=== PATIENT | female | born 1995 | race Caucasian/White ===

== ENCOUNTER 2018-07-05 21:57 | Emergency (ER) | payer SELFPAY ==
[~2018-07-05] VITALS: Ht 175.3 cm; Wt 63.0 kg
[2018-07-05 22:01] VITALS: BP 117/64
--- NOTE | 2018-07-05 22:01 | NUR ---
TO BED # 11 AMBULATORY, REPORT GIVEN TO ESTHER BINGHAM
--- NOTE | 2018-07-05 22:10 | NUR ---
BIB SELF. COUGH, RUNNY NOSE, HEADACHE FOR 9 DAYS, VOMITING. STATES LOTS OF PRESSURE BEHIND EYES AND EARS. DENIES SOB, NO LABORED BREATHING OR FEVER.
--- NOTE | 2018-07-05 22:14 | NUR ---
RAD AT BEDSIDE
--- NOTE | 2018-07-05 22:21 | NUR ---
DR BRITTON AT BEDSIDE.
[2018-07-05] MEDS ORDERED: KETOROLAC 30 MG/ML VIAL IM ONE (22:30)
[2018-07-05] MEDS ORDERED: PHENYLEPHRINE 0.5% 15 ML BTL NS ONE (22:30)
[2018-07-05 23:26] VITALS: BP 117/64
--- NOTE | 2018-07-05 23:27 | NUR ---
Patient discharged with v/s stable. Written and verbal after care instructions given and explained. Patient alert, oriented and verbalized understanding of instructions. Ambulatory with steady gait. All questions addressed prior to discharge. ID band removed. Patient advised to follow up with PMD. Rx of AUGMENTIN, SUDAFED, NAPROSYN given. Patient educated on indication of medication including possible reaction and side effects. Opportunity to ask questions provided and answered.
== END 2018-07-05 23:27 | disposition home or self-care (01) ==
LOC: MED 21:57
DX: J32.9 Chronic sinusitis, unspecified (principal); H92.03 Otalgia, bilateral
CPT/HCPCS: 71045; 87804; 96372; 99284; J1885

== ENCOUNTER 2018-11-05 04:10 | Emergency (ER) | payer MEDICAID ==
[~2018-11-05] VITALS: Ht 175.3 cm; Wt 60.8 kg
[2018-11-05 04:15] VITALS: BP 112/65
--- NOTE | 2018-11-05 04:22 | NUR ---
PT CAME TO ER C/O OF EPIGASTRIC PAIN X 4 DAYS. PT WENT TO [facility] ON 11/01/18 AND THEY GAVE HER A SHOT FOR PAIN. CURRENT PAIN LEVEL 9/10, SHARP, CONSTANT PAIN THAT RADIATES TO THE BACK. BOWEL SOUNDS ACTIVE X 4 QUADRANTS. ABDOMEN SOFT, TENDER TO TOUCH IN EPIGASTRIC REGION. PT HAS NAUSEA. DENIES V/D. PT LAST BM 11/01/18. PT DENIES BURNING UPON URINATION. NO MED HX. SAFETY MEASURES IN PLACE. ERMD NOTIFIED OF PT STATUS.
[2018-11-05] MEDS ORDERED: NACL 0.9% 500 ML IV ONE (04:32)
[2018-11-05] MEDS ORDERED: KETOROLAC 30 MG/ML VIAL IVP ONE (04:35)
[2018-11-05] MEDS ORDERED: PANTOPRAZOLE 40 MG INJ VIAL IVP ONE (04:40)
[2018-11-05 05:02] LABS: BASOPHILS % (AUTO) 0.4 % (0.0-2.0); EOSINOPHILS % (AUTO) 0.2 % (0.0-4.0); HEMATOCRIT 36.9 % (36-48); HEMOGLOBIN 12.4 g/dL (12.0-16.0); LYMPHOCYTES # (AUTO) 2.2 K/uL (2.5-16.5); LYMPHOCYTES % (AUTO) 22.2 % (20.5-51.1); MEAN CORPUSCULAR HEMOGLOBIN 31 pg (27-31); MEAN CORPUSCULAR HGB CONC 34 g/dL (33-37); MEAN CORPUSCULAR VOLUME 92.8 fL (80-94); MONOCYTES # (AUTO) 0.9 K/uL (0.8-1.0); MONOCYTES % (AUTO) 9.7 % (1.7-9.3); NEUTROPHILS # (AUTO) 6.6 K/uL (1.8-7.7); NEUTROPHILS % (AUTO) 67.5 % (42.2-75.2); PLATELET COUNT (AUTO) 229 K/uL (140-450); RED BLOOD CELL COUNT(AUTO) 3.98 MIL/uL (4.20-5.40); RED CELL DISTRIBUTION WIDTH 12.4 % (11.6-13.7); WHITE BLOOD COUNT (AUTO) 9.7 K/uL (4.8-10.8)
[2018-11-05 05:13] LABS: ANION GAP 11.5 (8-16); CARBON DIOXIDE 26.6 mmol/L (21-32); CREATININE 0.9 mg/dL (0.6-1.3); POTASSIUM 3.1 mmol/L (3.5-5.1)
[2018-11-05] MEDS ORDERED: POTASSIUM CHLORIDE 10 MEQ TABER PO ONE (05:15)
[2018-11-05 05:19] LABS: ALBUMIN 3.7 g/dL (3.4-5.0); TOTAL BILIRUBIN 0.7 mg/dL (0.0-1.0)
--- NOTE | 2018-11-05 05:30 | NUR ---
PER PT SHE FEELS MUCH BETTER. PAIN LEVEL 0/10. ERMD MADE AWARE.
--- NOTE | 2018-11-05 05:53 | NUR ---
Patient discharged with v/s stable. Written and verbal after care instructions given and explained. Patient alert, oriented and verbalized understanding of instructions. Ambulatory with steady gait. All questions addressed prior to discharge. ID band removed. Patient advised to follow up with PMD. Rx of MINERAL OIL AND PROTONIX WAS given. Patient educated on indication of medication including possible reaction and side effects. Opportunity to ask questions provided and answered.
[2018-11-05 05:54] VITALS: BP 124/72
== END 2018-11-05 05:50 | disposition home or self-care (01) ==
LOC: MED 04:10
DX: R10.13 Epigastric pain (principal); M54.9 Dorsalgia, unspecified
CPT/HCPCS: 36415; 74018; 80053; 81025; 83690; 85025; 96374; 96375; 99283; C9113; J1885; J7030; Q0092

== ENCOUNTER 2020-01-21 22:53 | Emergency (ER) | payer MEDICAID ==
[~2020-01-21] VITALS: Ht 175.3 cm; Wt 79.4 kg
[2020-01-21 23:02] VITALS: BP 127/66
--- NOTE | 2020-01-21 23:06 | NUR ---
PT TAKEN TO ER BED 6 VIA W/C
--- NOTE | 2020-01-21 23:07 | NUR ---
25 Y/O FEMALE PRESENTED TO ED C/O LT KNEE PAIN S/P FALL ON TUESDAY. PT DENIES HITTING HEAD , -LOC. PT STATES SHE FELL DIRECTLY ON THE LT KNEE. OBSERVED LIMPING WHILE PT AMUBULATED TO BED. OBSERVED SWELLING IN LT KNEE.+CMS, BL STRONG PEDAL PULSES. PT RATES KNEE PAIN 9/10 , RADIATE TINGLING TO TOES. PT DENIES TAKING ANY MEDICATION FOR PAIN AT THIS TIME. PT RESTING IN BED, LOCKED AND IN LOWEST POSITION, HOB ELEVATED, SIDE RAIL X1. NO ACUTE DISTRESS NOTED AT THIS TIME. PMH: DENIES NKA
--- NOTE | 2020-01-21 23:15 | NUR ---
Female Barrelhead Inspector accompanied female patient for knee exam administered by Dr. Kapadia.
--- NOTE | 2020-01-21 23:15 | NUR ---
JOVANY CARRANZA AT BEDSIDE
[2020-01-21] MEDS ORDERED: ACETAMINOPHEN EXTRA STRENGTH 500 MG TAB PO ONE (23:20)
--- NOTE | 2020-01-21 23:25 | NUR ---
XRAY AT BEDSIDE.
--- NOTE | 2020-01-21 23:55 | NUR ---
JOVANY CARRANZA AT BEDSIDE
--- NOTE | 2020-01-22 00:04 | NUR ---
KNEE IMMOBILIZER PLACED ON PT L KNEE, FASTENED TO SIZE. +CSM
--- NOTE | 2020-01-22 00:04 | NUR ---
EMT AT BEDSIDE FOR KNEE STABLIZER AND CRUTCHES .
--- NOTE | 2020-01-22 00:05 | NUR ---
PT GIVEN INSTRUCTION ON PROPER USE OF CRUTCHES. FITTED TO PT HEIGHT AND ARM LENGTH. PT DEMONSTRATED SAFE USE FOR APPROXIMATELY 40 FEET, STATED SHE FELT COMFORTABLE WITH USE.
[2020-01-22 00:30] VITALS: BP 127/66
--- NOTE | 2020-01-22 00:30 | NUR ---
Patient discharged with v/s stable. Written and verbal after care instructions given and explained. Patient verbalized understanding. Ambulatory with steady gait while using crutches. All questions addressed prior to discharge. Advised to follow up with PMD.
== END 2020-01-22 00:30 | disposition home or self-care (01) ==
LOC: MED 22:53
DX: M25.562 Pain in left knee (principal)
CPT/HCPCS: 29505; 73562; 99283

== ENCOUNTER 2020-06-06 10:46 | Emergency (ER) | payer MEDICAID ==
[~2020-06-06] VITALS: Ht 172.7 cm; Wt 68.0 kg
[2020-06-06 10:50] VITALS: BP 138/86
--- NOTE | 2020-06-06 10:55 | NUR ---
PATIENT AMBULATED TO BED 06 WITH STEADY GAIT.
--- NOTE | 2020-06-06 10:58 | NUR ---
25 y/o F coming in from home with c/c anxiety symptoms x 2 weeks. Patient states two weeks ago, she was showering when the anxiety occured. Pt reports her throat closing; chest pressure; dizziness/nausea. Pt states since two weeks ago, the anxiety has progressively worsen. She reports having nightmares and awkening with panic attacks. Patient states she was diagnosed with anxiety in 2016, however, refused to take prescribed medications at the time. Pt also states she has been feeling "sad" since 2016 as well. Pt states associated SOB, fatigue, headache, vision changes, and chest pressure which she rates 8/10, pressure/constant, non-radiating. Pt denies dizziness, vomiting, abdominal pain, recent life stressors or lifestyle changes. Pt denies taking any medications prior to arrival. Pt placed onto cardiac montior. Bed locked in lowest position, side rails x 1, call light in reach. PMH: Anxiety (2016) Meds: "Refused prescribed meds in 2016" NKA Sx: Denies
--- NOTE | 2020-06-06 11:14 | NUR ---
DR CRAFT AT BEDSIDE EXAMINING PATIENT
[2020-06-06] MEDS ORDERED: clonazePAM 0.5 MG TAB PO ONE ×2 (11:20→12:30)
--- NOTE | 2020-06-06 11:20 | NUR ---
EMT at bedside for EKG
[2020-06-06] MEDS ORDERED: CRUSHER, PILL MC ONE (11:28)
--- NOTE | 2020-06-06 11:57 | NUR ---
Patient states positive relief after 0.25 mg Klonopin. Pt resting in semi-fowlers position. actuarial mathematician remains in place. All pt needs met at this time. Bed locked in lowest position, side rails x 1, call light in reach.
[2020-06-06] MEDS ORDERED: CLON0.5T PO (12:30)
[2020-06-06 12:35] VITALS: BP 107/65
--- NOTE | 2020-06-06 12:35 | NUR ---
Patient discharged with v/s stable. Written and verbal after care instructions given and explained. Patient alert, oriented and verbalized understanding of instructions. Ambulatory with steady gait. All questions addressed prior to discharge. ID band removed. Patient advised to follow up with PMD. Rx of Clonazepam given. Patient educated on indication of medication including possible reaction and side effects. Opportunity to ask questions provided and answered.
== END 2020-06-06 11:10 | disposition home or self-care (01) ==
LOC: MED 10:46
DX: F41.9 Anxiety disorder, unspecified (principal); Z79.899 Other long term (current) drug therapy
CPT/HCPCS: 93005; 99283

== ENCOUNTER 2020-10-21 07:44 | Emergency (ER) | payer SELFPAY ==
[~2020-10-21] VITALS: Ht 170.2 cm; Wt 72.6 kg
[~2020-10-21 07:44] MED LIST: CLON0.5T PO
[2020-10-21 07:46] VITALS: BP 123/70
--- NOTE | 2020-10-21 07:54 | NUR ---
WAIT AT LOBBY. HANDED ON URINE CUP.
--- NOTE | 2020-10-21 08:45 | NUR ---
PT AMBULATED TO BED 9
--- NOTE | 2020-10-21 09:10 | NUR ---
25 YO FEMALE BIB SELF C/O DIZZINESS, HEADACHE, DIARRHEA, VOMITING X2DAYS. HEADACHE 10/10 PAIN, ACHING, NON RADIATING. DENIES BLOOD IN D/V. DENIES SYNCOPAL EPISODES. DENIES FEVER, CHILLS. BS ACTIVE X4, TENDERNESS TO LEFT SIDE DURING PALPATION. PT PLACED ON CYBER OPS PLANNER, AND O2 SAT CONT READING AT THIS TIME. BED IN LOWEST POSITON, SIDE RAILS UP FOR SAFETY. PMH: NONE ALLERGIES: NONE
--- NOTE | 2020-10-21 09:11 | NUR ---
MD FERRIS AT BEDSIDE.
--- NOTE | 2020-10-21 09:13 | NUR ---
PATIENT AMBULATED TO THE BATHROOM, STEADY GAIT.
[2020-10-21] MEDS ORDERED: NACL 0.9% 1,000 ML IV ONE (09:15)
[2020-10-21] MEDS ORDERED: ONDANSETRON 4 MG/2 ML VIAL IVP ONE (09:15)
--- NOTE | 2020-10-21 10:37 | NUR ---
PT AMBULATED TO BATHROOM, STEADY GAIT.
--- NOTE | 2020-10-21 11:11 | NUR ---
PT IN BED RESTING, RR EVEN AND UNLABORED. WARM BLANKET PROVIDED.
--- NOTE | 2020-10-21 11:25 | NUR ---
COLLECTED BLOOD AND WALKED TO LAB, HANDED TO STAFF.
[2020-10-21 11:38] LABS: BASOPHILS # (AUTO) 0.1 K/uL (0.00-0.22); BASOPHILS % (AUTO) 0.7 % (0.0-2.0); EOSINOPHILS % (AUTO) 0.2 % (0.0-4.0); HEMATOCRIT 37.6 % (36-48); HEMOGLOBIN 12.8 g/dL (12.0-16.0); LYMPHOCYTES # (AUTO) 2.1 K/uL (2.5-16.5); MEAN CORPUSCULAR HEMOGLOBIN 32 pg (27-31); MEAN CORPUSCULAR HGB CONC 34 g/dL (33-37); MEAN CORPUSCULAR VOLUME 92.9 fL (80-94); MONOCYTES # (AUTO) 0.8 K/uL (0.8-1.0); MONOCYTES % (AUTO) 8.2 % (1.7-9.3); NEUTROPHILS # (AUTO) 6.6 K/uL (1.8-7.7); NEUTROPHILS % (AUTO) 68.9 % (42.2-75.2); PLATELET COUNT (AUTO) 290 K/uL (140-450); RED BLOOD CELL COUNT(AUTO) 4.05 MIL/uL (4.20-5.40); RED CELL DISTRIBUTION WIDTH 12.8 % (11.6-13.7); WHITE BLOOD COUNT (AUTO) 9.6 K/uL (4.8-10.8)
[2020-10-21 11:52] LABS: ALBUMIN 3.7 g/dL (3.4-5.0); ANION GAP 12.7 (8-16); CARBON DIOXIDE 26.2 mmol/L (21-32); CREATININE 0.7 mg/dL (0.6-1.3); POTASSIUM 3.9 mmol/L (3.5-5.1); TOTAL BILIRUBIN 0.6 mg/dL (0.0-1.0)
--- NOTE | 2020-10-21 11:52 | NUR ---
PT RESTING IN BED, PROVIDED WARM BLANKETS. RR EVEN AND UNLABORD. VS TAKEN, STABLE.
--- NOTE | 2020-10-21 12:28 | NUR ---
Patient discharged with v/s stable. Written and verbal after care instructions given and explained. Patient verbalized understanding. Ambulatory with steady gait. All questions addressed prior to discharge. Advised to follow up with PMD.
[2020-10-21 12:44] VITALS: BP 100/47
[2020-10-21 13:18] LABS: APPEARANCE,URINE SL CLOUDY (CLEAR); BILIRUBIN,URINE NEGATIVE (NEGATIVE); BLOOD, URINE TRACE-I (NEGATIVE); COLOR,URINE YELLOW (YELLOW); LEUKOCYTE ESTERASE ,URINE 1+ (NEGATIVE); NITRITE, URINE POSITIVE (NEGATIVE); UGLUCOSE NEGATIVE (NEGATIVE)
[2020-10-21 13:45] LABS: RBC,URINE NONE SEEN /HPF (0-5); WBC,URINE 0-5 /HPF (0-5)
== END 2020-10-21 12:28 | disposition home or self-care (01) ==
LOC: MED 07:44
DX: N39.0 Urinary tract infection, site not specified (principal); Z20.822 Contact with and (suspected) exposure to COVID-19; R11.10 Vomiting, unspecified; R19.7 Diarrhea, unspecified; Z79.899 Other long term (current) drug therapy
CPT/HCPCS: 80053; 81001; 81025; 83690; 84703; 85025; 87086; 96361; 96374; 99283; J2405; J7030; U0003